=== PATIENT | female | born 1980 | race Caucasian/White ===

== ENCOUNTER 2018-10-05 00:03 | Inpatient (IN) ==
--- NOTE | 2018-10-05 01:12 | P.HPFP ---
History of Present Illness Primary Care Physician: [facility] History of Present Illness: 38-year-old female THIERNOA presents at 39 weeks 5 days, current smoker with history of macrosomia, for scheduled induction of labor. This is scheduled induction at 39 weeks 5 days for social reasons. He has been feeling occasional contractions. No leakage of fluid. No vaginal bleeding. Positive movement. Uncomplicated Elevated one-hour glucose testing, however repeat 3 hours negative history: x4, last vaginal delivery in 2017; baby 9 pounds 14 ounces (macrosomic baby), history of one at 6 months with a demise. Medical history: None Surgical history: None Allergies: Latex - Diagnosis (1) 39 weeks gestation of Inpatient Certification: I certify that the inpatient services were ordered in accordance with Medicare regulations governing the order. This includes certification that hospital inpatient services are reasonable and necessary and in the case of services not specified as inpatient-only under 42 CFR 419.22(n), that they are appropriately provided as inpatient services in accordance to with the 2-midnight benchmark under 43 CFR 412.3(e) [facility] - History History Provided By: Patient - Tobacco History Smoking Status: Current every day smoker Packs Per Day: 0.5 - Alcohol History How Often Do You Have a Drink Containing Alcohol: Monthly or less (occ glass of wine) - Substance Use History Substance History: No History of Abuse - Travel History History of Recent Travel: No Medications and Allergies Allergies Allergy/AdvReac Type Severity Reaction Status Date / Time latex Allergy Swelling Verified 10/01/18 17:56 of Lip/Tongue/Throat Home Medications Medication Instructions Recorded Confirmed Type vit-iron fum-folic ac 1 tab PO DAILY 10/05/18 10/05/18 History [ Vitamin] Exam Vital signs: Vital Signs 10/05/18 00:14 Pulse Rate 86 Respiratory Rate 20 Blood Pressure 124/64 Intake & Output 10/04/18 10/04/18 10/05/18 06:59 18:59 06:59 Weight 104.326 kg Narrative: GENERAL: Well-nourished, well-developed patient. SKIN: Warm and dry. HEAD: Normocephalic and atraumatic. EYES: No scleral icterus. No injection or drainage. ENT: No nasal drainage noted. Mucous membranes pink. Airway patent. NECK: Supple, trachea midline. No JVD. CARDIOVASCULAR: Regular rate and rhythm without murmurs, gallops, or rubs. RESPIRATORY: Breath sounds equal bilaterally. No accessory muscle use. ABDOMEN/GI: Abdomen soft, non-tender, bowel sounds present, no rebound, no guarding Gravid to 40 weeks size Fundal Height: 40 GENITOURINARY: External Genitalia: intact and normal in appearance FHT's: Cat I, + accels, no decels [place]: irreg cxns on monitor Results - Labs Result diagrams: 10/05/18 00:40 Caprini VTE Risk Assessment Caprini VTE Risk Assessment: No/Low Risk (score <= 1) Caprini Risk Assessment Model: Point Value = 1 Point Value = 2 Point Value = 3 Point Value = 5 Age 41-60 Minor surgery BMI > 25 kg/m2 Swollen legs Varicose veins or History of unexplained or recurrent spontaneous Oral contraceptives or hormone replacement Sepsis (< 1 month) Serious lung disease, including pneumonia (< 1 month) Abnormal pulmonary function Acute myocardial infarction Congestive heart failure (< 1 month) History of inflammatory bowel disease Medical patient at bed rest Age 61-74 Arthroscopic surgery Major open surgery (> 45 min) Laparoscopic surgery (> 45 min) Malignancy Confined to bed (> 72 hours) Immobilizing plaster cast Central venous access Age >= 75 History of VTE Family history of VTE Factor V Leiden Prothrombin [id number] Lupus anticoagulant Anticardiolipin antibodies Elevated serum homocysteine Heparin-induced thrombocytopenia Other congenital or acquired thrombophilia Stroke (< 1 month) Elective arthroplasty Hip, pelvis, or leg fracture Acute spinal cord injury (< 1 month) Prophylaxis Regimen: Total Risk Factor Score Risk Level Prophylaxis Regimen 0-1 Low Early ambulation 2 Moderate Order ONE of the following: *Sequential Compression Device (SCD) *Heparin 5000 units SQ BID 3-4 Higher Order ONE of the following medications: *Heparin 5000 units SQ TID *Enoxaparin/Lovenox 40 mg SQ daily (WT < 150 kg, CrCl > 30 mL/min) *Enoxaparin/Lovenox 30 mg SQ daily (WT < 150 kg, CrCl > 10-29 mL/min) *Enoxaparin/Lovenox 30 mg SQ BID (WT < 150 kg, CrCl > 30 mL/min) AND/OR *Sequential Compression Device (SCD) 5 or more Highest Order ONE of the following medications: *Heparin 5000 units SQ TID (Preferred with Epidurals) *Enoxaparin/Lovenox 40 mg SQ daily (WT < 150 kg, CrCl > 30 mL/min) *Enoxaparin/Lovenox 30 mg SQ daily (WT < 150 kg, CrCl > 10-29 mL/min) *Enoxaparin/Lovenox 30 mg SQ BID (WT < 150 kg, CrCl > 30 mL/min) AND *Sequential Compression Device (SCD) Assessment and Plan - Assessment (1) 39 weeks gestation of Code(s): Z3A.39 - 39 weeks gestation of Status: Acute Plan: 38-year-old female AMA presents at 39 weeks 5 days, current smoker with history of macrosomia, grand multip, for scheduled induction of labor. - Admit to L&D - Pt consented - Cat 1 tracing, cont to monitor - VSS - T&C x 2 for grand multip status Plan for cook balloon induction Discussed w/
[2018-10-05] MEDS ORDERED: Sod Chloride 0.9% Inj 1,000 ML IV.CONT PRN (01:13)
[2018-10-05] MEDS ORDERED: Carboprost Tromethamine Inj 250 MCG/ML Ampul IM PRN (01:13)
[2018-10-05] MEDS ORDERED: Naloxone Inj 0.4 MG/ML Vial IV.PUSH PRN ×2 (01:13→17:56)
[2018-10-05] MEDS ORDERED: Sodium Chlor 0.9% Inj 500 ML IV.SIG PRN (01:13)
[2018-10-05] MEDS ORDERED: miSOPROStol 200 MCG Tablet RECTAL PRN (01:13)
[2018-10-05] MEDS ORDERED: Oxytocin 30 Units/500ml Premix 30 UNITS/500 ML BAG IV.SIG ONE (01:13)
[2018-10-05] MEDS ORDERED: Methylergonovine Inj 0.2 MG/ML Ampul IM PRN (01:13)
[2018-10-05] MEDS ORDERED: fentaNYL Citrate Inj 100 MCG/2 ML Ampul IV.PUSH PRN ×2 (01:13)
[2018-10-05] MEDS ORDERED: Tranexamic Acid Inj 1,000 MG in Sodium Chlor 0.9% Inj 100 ML IV.SIG PRN (01:13)
[2018-10-05] MEDS ORDERED: Silver Nitrate/Potassium Nitrate Applicator Sticks TOPICAL PRN (01:13)
[2018-10-05] MEDS ORDERED: Citric Acid/Sodium Citrate Liq 30 ML UDC PO SCH (01:15)
[2018-10-05 01:21] LABS: Baso # (Auto) 0.1 th/mm3 (0.0-0.2); Baso % (Auto) 0.5 % (0.0-2.0); Eos # (Auto) 0.2 th/mm3 (0.0-0.4); Eos % (Auto) 1.5 % (0.0-4.0); Hemoglobin 12.2 gm/dL (11.6-15.3); Lymph # (Auto) 2.2 th/mm3 (1.0-4.8); Lymph % (Auto) 18.9 % (9.0-44.0); Mean Corpuscular HGB Conc 33.8 % (32.0-36.0); Mean Corpuscular Hemoglobin 30.9 pg (27.0-34.0); Mean Corpuscular Volume 91.4 fL (80.0-100.0); Mean Platelet Volume 10.6 fL (7.0-11.0); Mono # (Auto) 0.6 th/mm3 (0.0-0.9); Mono % (Auto) 5.1 % (0.0-8.0); Neut # (Auto) 8.8 th/mm3 (1.8-7.7); Platelet Count 205 th/mm3 (150-450); Red Blood Count 3.94 mil/mm3 (4.00-5.30); Red Cell Distribution Width 14.6 % (11.6-17.2); White Blood Count 11.9 th/mm3 (4.0-11.0)
[2018-10-05 01:32] LABS: Bacteria,Urine Rare /hpf; Bilirubin,Urine Negative (Negative); Clarity,Urine Clear (Clear); Color,Urine Yellow (Yellw/Straw); Glucose,Urine (UA) Negative (Negative); Leukocyte Esterase,Urine Negative (Negative); Mucus,Urine Few /lpf (Occasional); Nitrite,Urine Negative (Negative); Specific Gravity,Urine 1.016 (1.002-1.035); Squamous Epithelial Cell,Urine 1 /hpf (0-5)
--- NOTE | 2018-10-05 02:36 | P.PN ---
Subjective Interval history: OBHG 38 year-old , IUP at 39.5 presents for induction of labor. She has a history of a 9#14oz delivery and denies shoulder dystocia or any complications with the delivery. She had an US performed on 09/18/18 with EFW 7#6oz. She feels like the baby may be 9# or a little bigger. She reports a normal 1h GCT. FHR is a category 1 heart rate tracing and reactive, herat tones are reassuring. We discussed the goal of a healthy and healthy mother. We discussed that our primary goal is a vaginal delivery but but that sometimes delivery is indicated. We discussed the risks of vaginal delivery including lacerations, bleeding/ hemorrhage, and shoulder dystocia. We discussed that shoulder dystocia is unpredictable but she has no indications to recommend delivery. She does not believes this baby is smaller than her biggest baby. We discussed the risks of shoulder dystocia that include but are not limited to a approximately 3-5% risk of permanent and irreversible neurological injury to the . We discussed the indications for section including maternal indications, indications, and emergent indications. The risks, benefits, and alternatives of section were discussed with the patient. The risks include but are not limited to pain, infection, bleeding, injury to other organs like the bladder/bowel/nerves/ vessels, injury to the baby, need for repeat operation, need for hysterectomy, need for blood transfusion, wound infection or breakdown, and other possible risks. All the patient's questions were answered and consent signed. She desires to proceed with a vaginal delivery. We discussed methods of induction of labor and risks, benefits, and alternatives to both. We discussed that cervidil works more slowly but may be removed, cytotec works more quickly but is not able to be removed if the fetus doesn't tolerate the cytotec. We discussed use of the Cook Catheter as manual method of dilation and oxytocin. All of her questions were answered and she agreed to the Cook Catheter which was placed in the usual manner without difficulty. Physical Exam Vital signs: Vital Signs 10/05/18 00:14 10/05/18 01:08 10/05/18 02:00 Temperature 97.8 F Pulse Rate 86 Respiratory Rate 20 18 Blood Pressure 124/64 Intake & Output 10/04/18 10/04/18 10/05/18 06:59 18:59 06:59 Weight 104.326 kg Results - Labs CBC & Chem 7: 10/05/18 00:40 Laboratory Results - last 24 hr 10/05/18 10/05/18 10/05/18 00:00 00:40 00:40 WBC 11.9 H RBC 3.94 L Hgb 12.2 Hct 36.0 MCV 91.4 MCH 30.9 MCHC 33.8 RDW 14.6 Plt Count 205 MPV 10.6 Neut % (Auto) 74.0 H Lymph % (Auto) 18.9 Rice % (Auto) 5.1 Eos % (Auto) 1.5 Baso % (Auto) 0.5 Neut # (Auto) 8.8 H Lymph # (Auto) 2.2 Rice # (Auto) 0.6 Eos # (Auto) 0.2 Baso # (Auto) 0.1 WBC Differential . Differential Comment Auto diff final Urine Color Yellow Urine Clarity Clear Urine pH 6.0 Ur Specific [place] 1.016 Urine Protein Negative Urine Glucose (UA) Negative Urine Ketones 20 Urine Occult Blood Negative Urine Nitrate Negative Urine Bilirubin Negative Urine Urobilinogen Less than 2 Ur Leukocyte Esterase Negative Urine RBC 1 Urine WBC 1 Ur Squamous Epith Cells 1 Urine Bacteria Rare H Urine Mucus Few H Micro UA Comment Culture not ind Ur Microscopic Review Not Reportable Urine Culture Comments Culture not ind Blood Type A Negative Blood Type Recheck Required
[2018-10-05] MEDS ORDERED: Oxytocin 30 Units/500ml Premix 30 UNITS/500 ML BAG IV.SIG PRN (08:22)
[2018-10-05] MEDS ORDERED: Citric Acid/Sodium Citrate Liq 30 ML UDC PO ONE (11:00)
[2018-10-05] MEDS ORDERED: Diphtheria/Tetanus/Pertussis Vaccine Inj 0.5 ML Syringe IM ONE (16:00)
[2018-10-05] MEDS ORDERED: Measles/Mumps/Rubella Vaccine Inj 0.5 ML Vial SQ ONE (16:00)
[2018-10-05] MEDS ORDERED: fentaNYL 2MCG-Bupiv 0.125% Epi 150 ML EPIDURAL ONE (16:36)
[2018-10-05] MEDS ORDERED: Bupivacaine PF 0.25% Inj 10 ML Vial ONE (16:55)
[2018-10-05] MEDS ORDERED: Lidocaine PF 1% Inj 5 ML Vial ONE (16:56)
[2018-10-05] MEDS ORDERED: Lidocaaine 1.5%/Epinephrine 1:200,000 PF Inj 5 ML Amp ONE (16:56)
[2018-10-05] MEDS ORDERED: Tranexamic Acid Inj 1,000 MG/10 ML Ampul ONE (17:15)
[2018-10-05] MEDS ORDERED: miSOPROStol 200 MCG Tablet PO STA (17:41)
[2018-10-05] MEDS ORDERED: miSOPROStol 200 MCG Tablet RECTAL STA (17:43)
--- NOTE | 2018-10-05 17:48 | P.HPOB ---
Patient Name: Keshia Hanson Date of : 78 Patient Status: Inpatient Attending Provider: Adela Nuñez Date: 10/05/18 01:01 Initialization Date: 10/05/18 01:01 History of Present Illness Primary Care Physician: [facility] History of Present Illness: 38-year-old female AMA presents at 39 weeks 5 days, current smoker with history of macrosomia, for scheduled induction of labor. This is scheduled induction at 39 weeks 5 days for social reasons. He has been feeling occasional contractions. No leakage of fluid. No vaginal bleeding. Positive movement. Uncomplicated Elevated one-hour glucose testing, however repeat 3 hours negative history: x4, last vaginal delivery in 2017; baby 9 pounds 14 ounces (macrosomic baby), history of one at 6 months with a demise. Medical history: None Surgical history: None Allergies: Latex - Diagnosis (1) 39 weeks gestation of Inpatient Certification: I certify that the inpatient services were ordered in accordance with Medicare regulations governing the order. This includes certification that hospital inpatient services are reasonable and necessary and in the case of services not specified as inpatient-only under 42 CFR 419.22(n), that they are appropriately provided as inpatient services in accordance to with the 2-midnight benchmark under 43 CFR 412.3(e) [facility] - History History Provided By: Patient - Tobacco History Smoking Status: Current every day smoker Packs Per Day: 0.5 - Alcohol History How Often Do You Have a Drink Containing Alcohol: Monthly or less (occ glass of wine) - Substance Use History Substance History: No History of Abuse - Travel History History of Recent Travel: No Medications and Allergies Allergies Allergy/AdvReac Type Severity Reaction Status Date / Time latex Allergy Swelling Verified 10/01/18 17:56 of Lip/Tongue/Throat Home Medications Medication Instructions Recorded Confirmed Type vit-iron fum-folic ac 1 tab PO DAILY 10/05/18 10/05/18 History [ Vitamin] Exam Vital signs: Vital Signs 10/05/18 00:14 Pulse Rate 86 Respiratory Rate 20 Blood Pressure 124/64 Intake & Output 10/04/18 10/04/18 10/05/18 06:59 18:59 06:59 Weight 104.326 kg Narrative: Late entry GENERAL: Well-nourished, well-developed patient. SKIN: Warm and dry. HEAD: Normocephalic and atraumatic. EYES: No scleral icterus. No injection or drainage. ENT: No nasal drainage noted. Mucous membranes pink. Airway patent. NECK: Supple, trachea midline. No JVD. CARDIOVASCULAR: Regular rate and rhythm without murmurs, gallops, or rubs. RESPIRATORY: Breath sounds equal bilaterally. No accessory muscle use. ABDOMEN/GI: Abdomen soft, non-tender, bowel sounds present, no rebound, no guarding Gravid to 40 weeks size Fundal Height: 40 GENITOURINARY: External Genitalia: intact and normal in appearance. VE 6cm/50/-2-cook cath removed intact FHT's: Cat I, + accels, no decels [place]: irreg cxns on monitor Results - Labs Result diagrams: 10/05/18 00:40 Caprini VTE Risk Assessment Caprini VTE Risk Assessment: No/Low Risk (score <= 1) Caprini Risk Assessment Model: Point Value = 1 Point Value = 2 Point Value = 3 Point Value = 5 Age 41-60 Minor surgery BMI > 25 kg/m2 Swollen legs Varicose veins or History of unexplained or recurrent spontaneous Oral contraceptives or hormone replacement Sepsis (< 1 month) Serious lung disease, including pneumonia (< 1 month) Abnormal pulmonary function Acute myocardial infarction Congestive heart failure (< 1 month) History of inflammatory bowel disease Medical patient at bed rest Age 61-74 Arthroscopic surgery Major open surgery (> 45 min) Laparoscopic surgery (> 45 min) Malignancy Confined to bed (> 72 hours) Immobilizing plaster cast Central venous access Age >= 75 History of VTE Family history of VTE Factor V Leiden Prothrombin [id number] Lupus anticoagulant Anticardiolipin antibodies Elevated serum homocysteine Heparin-induced thrombocytopenia Other congenital or acquired thrombophilia Stroke (< 1 month) Elective arthroplasty Hip, pelvis, or leg fracture Acute spinal cord injury (< 1 month) Prophylaxis Regimen: Total Risk Factor Score Risk Level Prophylaxis Regimen 0-1 Low Early ambulation 2 Moderate Order ONE of the following: *Sequential Compression Device (SCD) *Heparin 5000 units SQ BID 3-4 Higher Order ONE of the following medications: *Heparin 5000 units SQ TID *Enoxaparin/Lovenox 40 mg SQ daily (WT < 150 kg, CrCl > 30 mL/min) *Enoxaparin/Lovenox 30 mg SQ daily (WT < 150 kg, CrCl > 10-29 mL/min) *Enoxaparin/Lovenox 30 mg SQ BID (WT < 150 kg, CrCl > 30 mL/min) AND/OR *Sequential Compression Device (SCD) 5 or more Highest Order ONE of the following medications: *Heparin 5000 units SQ TID (Preferred with Epidurals) *Enoxaparin/Lovenox 40 mg SQ daily (WT < 150 kg, CrCl > 30 mL/min) *Enoxaparin/Lovenox 30 mg SQ daily (WT < 150 kg, CrCl > 10-29 mL/min) *Enoxaparin/Lovenox 30 mg SQ BID (WT < 150 kg, CrCl > 30 mL/min) AND *Sequential Compression Device (SCD) Assessment and Plan - Assessment (1) 39 weeks gestation of Code(s): Z3A.39 - 39 weeks gestation of Status: Acute Plan: 38-year-old female AMA presents at 39 weeks 5 days, current smoker with history of macrosomia, grand multip, for scheduled induction of labor. pelvis adequate- Anticipate
--- NOTE | 2018-10-05 17:51 | P.OBDELI ---
Patient Started Active Labor: No Medical Induction of Labor: Yes Artificial Rupture of Membrane: Yes Anesthesia: None Episiotomy: none Vaginal Delivery: Normal Presentation: Occiput anterior Delayed Cord Clamping (45 sec): Yes Placenta: Spontaneous delivery, Uterus explored + Laceration: None : Female Weight: 4125 kg score (1 min): 7 score (5 min): 9
[2018-10-05] MEDS ORDERED: Witch Hazel 50%/Glyderin 12.5% 40 Pad Jar RECTAL PRN (17:56)
[2018-10-05] MEDS ORDERED: Oxytocin 30 Units/500ml Premix 30 UNITS/500 ML BAG IV.CONT PRN (17:56)
[2018-10-05] MEDS ORDERED: Bisacodyl 10 MG Supp RECTAL PRN (17:56)
[2018-10-05] MEDS ORDERED: Zolpidem Tartrate 5 MG Tablet PO PRN (17:56)
[2018-10-05] MEDS ORDERED: Benzocaine 20% Top Spray 60 ML Can TOPICAL PRN (17:56)
[2018-10-05] MEDS ORDERED: Tranexamic Acid Inj 1,000 MG in Sodium Chlor 0.9% Inj 100 ML IV.SIG SCH (18:00)
[2018-10-05] MEDS: Acetaminophen 325 MG Tablet PO PRN (21:16)
[2018-10-05] MEDS: Senna/Docusate Sodium 8.6/50 MG Tablet PO SCH (21:27)
[2018-10-06] MEDS: Acetaminophen 325 MG Tablet PO PRN ×3 (07:48→18:51)
--- NOTE | 2018-10-06 08:36 | P.PNOB ---
Subjective Post day: 1 Interval history: Patient's pain is well-controlled. Patient reports eating and drinking without any nausea or vomiting. Patient reports minimal bleeding. Patient has passed gas but no bowel movements. Patient is walking without lower extremity pain or shortness of breath. She denies any chills, but she had a fever around 7pm last night and this morning. Objective Vital Signs/I&O: Vital Signs 10/05/18 08:44 10/05/18 09:01 10/05/18 10:01 Temperature Pulse Rate 70 73 79 Respiratory Rate Blood Pressure 104/54 L 102/56 L 109/54 L 10/05/18 10:31 10/05/18 10:45 10/05/18 11:01 Temperature Pulse Rate 73 73 Respiratory Rate 18 Blood Pressure 95/53 L 90/60 L 10/05/18 11:45 10/05/18 12:10 10/05/18 12:40 Temperature 98.8 F Pulse Rate 78 69 70 Respiratory Rate Blood Pressure 104/57 L 104/59 L 97/47 L 10/05/18 13:02 10/05/18 13:41 10/05/18 14:02 Temperature 97.8 F Pulse Rate 76 71 72 Respiratory Rate 20 Blood Pressure 109/60 114/60 111/62 10/05/18 15:05 10/05/18 16:03 10/05/18 17:24 Temperature Pulse Rate 75 74 90 Respiratory Rate Blood Pressure 110/57 L 108/56 L 124/58 L 10/05/18 17:26 10/05/18 17:30 10/05/18 17:56 Temperature 97.7 F Pulse Rate 80 86 Respiratory Rate Blood Pressure 103/43 L 109/59 L 10/05/18 18:01 10/05/18 18:16 10/05/18 18:38 Temperature Pulse Rate 80 70 78 Respiratory Rate Blood Pressure 113/66 104/61 108/53 L 10/05/18 19:12 10/05/18 19:13 10/05/18 20:00 Temperature 100.5 F H 98.5 F Pulse Rate 83 80 Respiratory Rate 16 18 Blood Pressure 107/55 L 127/79 10/06/18 08:00 Temperature 100.0 F H Pulse Rate 51 L Respiratory Rate 18 Blood Pressure 115/73 Intake & Output 10/05/18 10/06/18 10/06/18 18:59 06:59 18:59 Intake Total 1000 / 1000 Balance 1000 / 1000 Intake: IV 1000 / 1000 LR 1000 mL Inj 1,000 ML @ 125 1000 / 1000 mls/hr IV.CONT .Q8H [facility] Rx#: [id number] Result Diagrams: 10/05/18 00:40 Objective Remarks: GENERAL: Well-nourished, well-developed patient. CARDIOVASCULAR: Regular rate and rhythm without murmurs, gallops, or rubs. RESPIRATORY: Breath sounds equal bilaterally. No accessory muscle use. ABDOMEN/GI: Abdomen soft, non-tender. Fundus: Firm, non-tender at umbilicus. GENITOURINARY: Light to moderate bleeding. EXTREMITIES: No cyanosis or edema, non-tender, without signs of DVT. Medications and IVs: Active Medications Acetaminophen (Tylenol) 650 mg PO Q4H PRN PRN Reason: PAIN SCALE 1 TO 2 Last Admin: 10/06/18 07:48 Dose: 650 mg Al Hydroxide/Mg Hydroxide (Milk Of Magnesia Liq) 30 ml PO Q12H PRN PRN Reason: Mild Constipation Benzocaine (Americaine 20% Top [place]) 1 spray TOPICAL Q4H PRN PRN Reason: For Perineum Discomfort Last Admin: 10/05/18 21:27 Dose: 1 spray Bisacodyl (Dulcolax Supp) 10 mg RECTAL DAILY PRN PRN Reason: SEVERE CONSITIPATION Tranexamic Acid 1,000 mg/ (Sodium Chloride) 110 mls @ 200 mls/hr IV.SIG ONCE GISELA Oxytocin (Pitocin 30 Units/Ns 500 Ml Premix) 30 units in 500 mls @ 100 mls/hr IV.CONT UNSCH PRN PRN Reason: Heavy bleeding Ibuprofen (Motrin) 800 mg PO Q8H PRN PRN Reason: For Cramping Last Admin: 10/06/18 07:49 Dose: 800 mg Lactulose (Lactulose Liq) 30 ml PO DAILY PRN PRN Reason: SEVERE CONSITIPATION Naloxone HCl (Narcan Inj) 0.1 mg IV.PUSH Q2M PRN PRN Reason: for opiate reversal Ondansetron HCl (Zofran Odt) 4 mg PO Q6H PRN PRN Reason: NAUSEA OR VOMITING Oxycodone/Acetaminophen (Percocet 5/325 Mg) 1 tab PO Q4H PRN PRN Reason: PAIN SCALE 3 TO 5 Senna/Docusate Sodium (Noemy-Colace) 1 tab PO BID [facility] Last Admin: 10/05/18 21:27 Dose: 1 tab Sennosides (Senokot) 17.2 mg PO Q12H PRN PRN Reason: Moderate Constipation Sodium Chloride (Ns Flush) 2 ml IV.FLUSH BID [facility] Last Admin: 10/05/18 21:28 Dose: 2 ml Sodium Chloride (Ns Flush) 2 ml IV.FLUSH PRN PRN PRN Reason: FLUSH AFTER USING IV ACCESS Last Admin: 10/05/18 21:28 Dose: 2 ml Witch Natacha/Glycerin (Tucks Pads) 1 applicatio RECTAL QID PRN PRN Reason: HEMORRHOIDS Last Admin: 10/05/18 21:28 Dose: 1 applicatio Zolpidem Tartrate (Ambien) 5 mg PO HS PRN PRN Reason: SLEEP Assessment and Plan - Diagnosis (1) Vaginal delivery Code(s): O80 - Encounter for full-term uncomplicated delivery Status: Acute Plan: Patient is a 38-year-old delivered at 39 weeks and 5 days. Patient is day 1 after vaginal delivery. Patient was counseled to do 6 weeks of pelvic rest. Patient was counseled to follow up in 6 weeks. Patient requested follow-up and contraception. --AF VSS. Patient had fever last night at 7pm and this morning. Will continue to monitor. --Patient refused RhoGAM --Continue routine care --Motrin and Tylenol when necessary for pain --Encourage OOB --Pelvic rest for 6 weeks will need follow-up appointment at that time. --Contraception: outpatient --Anticipate discharge tomorrow Patient discussed with Dr. Goldamn - Plan Discharge Planning: d/w Resident- pt needs to sign refusal of care form . D/C once 24 hours afebrile
[2018-10-06] MEDS: Senna/Docusate Sodium 8.6/50 MG Tablet PO SCH ×2 (10:44→21:54)
[2018-10-07] MEDS: Acetaminophen 325 MG Tablet PO PRN (04:00)
[2018-10-07 06:46] VITALS: RESP 16
--- NOTE | 2018-10-07 07:20 | P.PNOB ---
Subjective Post day: 2 Interval history: Patient's pain is well-controlled. Patient reports eating and drinking without any nausea or vomiting. Patient reports minimal bleeding. Patient has passed gas and had a bowel movement. Patient is walking without lower extremity pain or shortness of breath. She denies any chills. She denies any fever or chills overnight. She refuses RhoGAM even after risks of was discussed. Objective Vital Signs/I&O: Vital Signs 10/06/18 08:00 10/06/18 19:41 10/07/18 06:40 Temperature 100.0 F H 97.8 F 97.8 F Pulse Rate 51 L 57 L 62 Respiratory Rate 18 18 16 Blood Pressure 115/73 109/67 97/56 L Result Diagrams: 10/05/18 00:40 Objective Remarks: GENERAL: Well-nourished, well-developed patient. CARDIOVASCULAR: Regular rate and rhythm without murmurs, gallops, or rubs. RESPIRATORY: Breath sounds equal bilaterally. No accessory muscle use. ABDOMEN/GI: Abdomen soft, non-tender. Fundus: Firm, non-tender at umbilicus. GENITOURINARY: Light to moderate bleeding. EXTREMITIES: No cyanosis or edema, non-tender, without signs of DVT. Medications and IVs: Active Medications Acetaminophen (Tylenol) 650 mg PO Q4H PRN PRN Reason: PAIN SCALE 1 TO 2 Last Admin: 10/07/18 04:00 Dose: 650 mg Al Hydroxide/Mg Hydroxide (Milk Of [place] Liq) 30 ml PO Q12H PRN PRN Reason: Mild Constipation Benzocaine (Americaine 20% Top [place]) 1 spray TOPICAL Q4H PRN PRN Reason: For Perineum Discomfort Last Admin: 10/05/18 21:27 Dose: 1 spray Bisacodyl (Dulcolax Supp) 10 mg RECTAL DAILY PRN PRN Reason: SEVERE CONSITIPATION Tranexamic Acid 1,000 mg/ (Sodium Chloride) 110 mls @ 200 mls/hr IV.SIG ONCE GISELA Oxytocin (Pitocin 30 Units/Ns 500 Ml Premix) 30 units in 500 mls @ 100 mls/hr IV.CONT UNSCH PRN PRN Reason: Heavy bleeding Ibuprofen (Motrin) 800 mg PO Q8H PRN PRN Reason: For Cramping Last Admin: 10/07/18 03:57 Dose: 800 mg Lactulose (Lactulose Liq) 30 ml PO DAILY PRN PRN Reason: SEVERE CONSITIPATION Naloxone HCl (Narcan Inj) 0.1 mg IV.PUSH Q2M PRN PRN Reason: for opiate reversal Ondansetron HCl (Zofran Odt) 4 mg PO Q6H PRN PRN Reason: NAUSEA OR VOMITING Oxycodone/Acetaminophen (Percocet 5/325 Mg) 1 tab PO Q4H PRN PRN Reason: PAIN SCALE 3 TO 5 Senna/Docusate Sodium (Noemy-Colace) 1 tab PO BID [facility] Last Admin: 10/06/18 21:54 Dose: 1 tab Sennosides (Senokot) 17.2 mg PO Q12H PRN PRN Reason: Moderate Constipation Sodium Chloride (Ns Flush) 2 ml IV.FLUSH BID [facility] Last Admin: 10/06/18 21:00 Dose: Not Given Sodium Chloride (Ns Flush) 2 ml IV.FLUSH PRN PRN PRN Reason: FLUSH AFTER USING IV ACCESS Last Admin: 10/05/18 21:28 Dose: 2 ml Witch [place]/Glycerin (Tucks Pads) 1 applicatio RECTAL QID PRN PRN Reason: HEMORRHOIDS Last Admin: 10/05/18 21:28 Dose: 1 applicatio Zolpidem Tartrate (Ambien) 5 mg PO HS PRN PRN Reason: SLEEP Assessment and Plan - Diagnosis (1) Vaginal delivery Code(s): O80 - Encounter for full-term uncomplicated delivery Status: Acute Plan: Patient is a 38-year-old delivered at 39 weeks and 5 days. Patient is day 2 after vaginal delivery. Patient was counseled to do 6 weeks of pelvic rest. Patient was counseled to follow up in 6 weeks. Patient requested follow-up and contraception. --AF VSS. Patient afebrile for 24 hours. --Patient refused RhoGAM and signed refusal form. --Continue routine care --Motrin and Tylenol when necessary for pain --Encourage OOB --Pelvic rest for 6 weeks will need follow-up appointment at that time. --Contraception: outpatient --Anticipate discharge today Patient discussed with Dr. Ely
[2018-10-07 08:40] VITALS: BP 101/55; PULSE 50
[2018-10-07 08:42] VITALS: TEMP 98
[2018-10-07] MEDS: Senna/Docusate Sodium 8.6/50 MG Tablet PO SCH (11:28)
== END 2018-10-07 15:31 | disposition home or self-care (01) | DRG 807 ==
LOC: H2E 00:03 → H1EA 19:16
PROVIDERS: ADMIT Obstetrics & Gynecology; ATTEND Obstetrics & Gynecology
CPT/HCPCS: 59025; 81001; 85025; 86900; 86901; J2590; J3010; J7120